=== PATIENT | male | born 1955 | race Caucasian/White ===

== ENCOUNTER 2016-12-11 11:08 | Emergency (ER) | payer MEDICARE ==
[~2016-12-11] VITALS: Ht 177.8 cm; Wt 81.0 kg
[~2016-12-11 11:08] MED LIST: ALBU1AER INH; DULO20 PO; GABA300C3 PO; HYDR12.56 PO; LISI-360 PO; METO100T PO
[2016-12-11 11:11] VITALS: BP 176/91; PULSE 91; RESP 15; TEMP 98.2; O2SAT 98
--- NOTE | 2016-12-11 11:30 | PD ---
Physical Exam Time Seen by Provider: 11:28 Narrative 61yo M c/o abd pain x 1 week and requesting help for ETOH abuse. Reports vomiting and diarrhea. Patient seen in triage. VS reviewed. Patient awaiting bed placement. Data Data Last Documented VS Vital Signs Date Time Temp Pulse Resp B/P Pulse Ox O2 Delivery O2 Flow Rate FiO2 12/11/16 11:11 98.2 91 15 176/91 98 MDM Supervised Visit with JONI: Mary Orellana Dec 11, 2016 11:30
[2016-12-11] MEDS ORDERED: GABA100C4 PO (12:09)
[2016-12-11] MEDS ORDERED: LISI10TA3 PO (12:09)
[2016-12-11] MEDS ORDERED: DULO1CAP3 PO (12:09)
[2016-12-11] MEDS ORDERED: HYDR12.57 PO (12:09)
[2016-12-11] MEDS ORDERED: ALBUAER3 INH (12:09)
[2016-12-11] MEDS ORDERED: METO100T PO (12:09)
--- NOTE | 2016-12-11 12:10 | PD ---
HPI Chief Complaint: GI Complaint Time Seen by Provider: 12:08 Travel History International Travel<30 days: No Contact w/Intl Traveler<30days: No Traveled to known affect area: No History of Present Illness HPI Patient comes in complaining of generalized abdominal pain ongoing for several months and wanting alcohol detox. Patient reports associated diarrhea has been going on for several months. Patient reports dark stools and going on for years. Denies any bright red blood per rectum. Patient reports associated nausea, and vomiting. Reports vomit is nonbilious and nonbloody. Patient states he drinks 12 pack of beer a day and he last drank last night. Denies any chest pain, shortness of breath, back pain, loss or change in bladder, numbness or tingling anywhere, or headaches. PFSH Past Medical History Arthritis: Yes Asthma: No Autoimmune Disease: No Anxiety: Yes Depression: Yes Heart Rhythm Problems: No Cancer: No High Cholesterol: Yes Chest Pain: No Congestive Heart Failure: No COPD: No Cerebrovascular Accident: No Diabetes: No Diminished Hearing: No Endocrine: No Gastrointestinal Disorders: Yes GERD: No Genitourinary: No Headaches: Yes Hiatal Hernia: No Hypertension: Yes Immune Disorder: No Musculoskeletal: Yes Neurologic: Yes Psychiatric: Yes Reproductive: No Respiratory: Yes Immunizations Current: Yes Migraines: Yes (LAST MIGRAINE WAS 06/18/14) Seizures: Yes (STATES "I DON'T THINK I EVER HAD A SZ, JUST THE SHAKES") Sickle Cell Disease: No Sleep Apnea: No Thyroid Disease: No Ulcer: No Past Surgical History Abdominal Surgery: Yes AICD: No Appendectomy: Yes Arteriovenous Shunt: No Cardiac Surgery: No Ear Surgery: No Endocrine Surgery: No Eye Surgery: No Genitourinary Surgery: No Gynecologic Surgery: No Insulin Pump: No Joint Replacement: No Neurologic Surgery: No Oral Surgery: No Pacemaker: No Thoracic Surgery: No Other Surgery: Yes Social History Alcohol Use: Yes (6-12 BEERS QD) Tobacco Use: Yes (1/2 PPD ) Substance Use: Yes (marijuana occasionally ) Allergies-Medications (Allergen,Severity, Reaction): Coded Allergies: No Known Allergies (Verified , 01/11/16) Reported Meds & Prescriptions Reported Meds & Active Scripts Active Reported Hydrochlorothiazide 12.5 Mg Cap Unknown Dose PO DAILY Metoprolol Tartrate 100 Mg Tab 100 Mg PO BID Lisinopril 10 Mg Tab 10 Mg PO DAILY Gabapentin 100 Mg Cap 300 Mg PO TID Duloxetine DR (Duloxetine HCl) 60 Mg Capdr 60 Mg PO BID Review of Systems Except as stated in HPI: all other systems reviewed are Neg Physical Exam Narrative GENERAL: Well-developed, overly nourished, in no acute distress, and non-ill appearing. SKIN: Focused skin assessment warm and dry. HEAD: Atraumatic. Normocephalic. EYES: Pupils equal and round. EOMI. No scleral icterus. No injection or drainage. ENT: No nasal bleeding or discharge. Mucous membranes pink and moist. NECK: Trachea midline. Supple. No nuclear rigidity. CARDIOVASCULAR: Regular rate and rhythm. No murmur appreciated. RESPIRATORY: No accessory muscle use. No respiratory distress. Scant wheezing noted throughout. Breath sounds equal bilaterally. GASTROINTESTINAL: Abdomen soft, non-tender, nondistended. Hepatic margin is palpable and splenic margin not palpable. Normal bowel sounds 4. No pulsatile mass. MUSCULOSKELETAL: No obvious deformities. No clubbing. No cyanosis. No edema. Full range of motion. NEUROLOGICAL: Awake and alert. No obvious cranial nerve deficits. Motor grossly within normal limits. Normal speech. PSYCHIATRIC: Appropriate mood and affect; insight and judgment normal. Data Data Last Documented VS Vital Signs Date Time Temp Pulse Resp B/P Pulse Ox O2 Delivery O2 Flow Rate FiO2 12/11/16 17:44 88 20 143/67 94 12/11/16 11:11 98.2 Orders Complete Blood Count With Diff (12/11/16 12:04) Comprehensive Metabolic Panel (12/11/16 12:04) Lipase (12/11/16 12:04) Prothrombin Time / Inr (Pt) (12/11/16 12:04) Act Partial Throm Time (Ptt) (12/11/16 12:04) Iv Access Insert/Monitor (12/11/16 12:04) Ecg Monitoring (12/11/16 12:04) Oximetry (12/11/16 12:04) Ondansetron Inj (Zofran Inj) (12/11/16 12:15) Sodium Chloride 0.9% Flush (Ns Flush) (12/11/16 12:15) Alcohol (Ethanol) (12/11/16 12:04) Sodium Chlorid 0.9% 500 Ml Inj (Ns 500 M (12/11/16 13:45) Diet Regular Basic (12/11/16 Dinner) Lorazepam Inj (Ativan Inj) (12/11/16 18:00) Labs Laboratory Tests Test 12/11/16 12:20 White Blood Count 6.0 TH/MM3 Red Blood Count 5.45 MIL/MM3 Hemoglobin 16.0 GM/DL Hematocrit 47.0 % Mean Corpuscular Volume 86.4 FL Mean Corpuscular Hemoglobin 29.4 PG Mean Corpuscular Hemoglobin 34.0 % Concent Red Cell Distribution Width 18.9 % Platelet Count 167 TH/MM3 Mean Platelet Volume 7.1 FL Neutrophils (%) (Auto) 63.0 % Lymphocytes (%) (Auto) 25.7 % Monocytes (%) (Auto) 9.9 % Eosinophils (%) (Auto) 0.5 % Basophils (%) (Auto) 0.9 % Neutrophils # (Auto) 3.8 TH/MM3 Lymphocytes # (Auto) 1.6 TH/MM3 Monocytes # (Auto) 0.6 TH/MM3 Eosinophils # (Auto) 0.0 TH/MM3 Basophils # (Auto) 0.1 TH/MM3 CBC Comment DIFF FINAL Differential Comment Prothrombin Time 10.7 SEC Prothromb Time International 1.0 RATIO Ratio Activated Partial 28.4 SEC Thromboplast Time Sodium Level 132 MEQ/L Potassium Level 4.1 MEQ/L Chloride Level 97 MEQ/L Carbon Dioxide Level 22.7 MEQ/L Anion Gap 12 MEQ/L Blood Urea Nitrogen 7 MG/DL Creatinine 0.82 MG/DL Estimat Glomerular Filtration 96 ML/MIN Rate Random Glucose 112 MG/DL Calcium Level 8.5 MG/DL Total Bilirubin 0.8 MG/DL Aspartate Amino Transf 56 U/L (AST/SGOT) Alanine Aminotransferase 57 U/L (ALT/SGPT) Alkaline Phosphatase 91 U/L Total Protein 8.2 GM/DL Albumin 4.2 GM/DL Lipase 292 U/L Ethyl Alcohol Level 395 MG/DL MDM Medical Decision Making Medical Screen Exam Complete: Yes Emergency Medical Condition: Yes Differential Diagnosis Electrolyte abnormality, alcohol intoxication, alcohol abuse, anemia, appendicitis, or other Narrative Course Patient was seen and examined. Laboratory values were obtained and reviewed. Patient was hydrated with normal saline secondary to the mild hyponatremia. Urinalysis canceled as patient has no leukocytosis, is afebrile, and denies any symptoms. Patient will be monitored in the emergency department until clinically sober and able to ambulate on their own or until a sober responsible adult comes to pick them up. RN is aware of this. Patient was reassessed doing better, but complaining of feeling somewhat anxious. Patient given a small dose of Ativan and watched for a while longer in the ER to prevent withdrawal prior to discharge. After receiving Ativan patient was reassessed was ambulatory with steady gait, not slurring words, answering questions appropriately. Patient advised to not drink and drive. Discussed patient with Dr. Ronquillo prior to discharge, who is in agreement with plan and disposition. Patient in no obvious distress upon re-evaluation. All pertinent laboratory result(s) discussed with patient. Any questions/concerns in reference to patient diagnosis/condition discussed and clarified prior to patient's discharge. Reinforced sheer importance of close follow up with patient's primary physician or primary care clinic and/or [facility]. Instructed patient to return to ED immediately, if symptoms return/worsen. Pt showed understanding of above instructions. Further instructions and recommendations were detailed in discharge paperwork. Pt ambulated without difficulty out of ED at discharge. Diagnosis Primary Impression: Alcohol abuse with intoxication Additional Impression: Hyponatremia [facility] Patient Instructions: Abuse of Alcohol (ED), General Instructions, Hyponatremia (ED) Additional Instructions: Follow-up with your primary care physician and/or [facility] for detox. Stop or at least cut back on drinking. Return to the emergency department if symptoms get worse. Disposition: 01 DISCHARGE HOME Condition: Stable Chris Black Dec 11, 2016 12:10
[2016-12-11] MEDS ORDERED: ONDANSETRON HCL 4 MG/2 ML VIAL IVP ONE (12:15)
[2016-12-11] MEDS: SODIUM CHLORIDE 0.9% FLUSH 10 ML FLUSH IV FLUSH PRN ×2 (12:27→18:02)
[2016-12-11 12:31] LABS: AUTOMATED NEUTROPHIL # 3.8 TH/MM3 (1.8-7.7); BASOPHIL # 0.1 TH/MM3 (0-0.2); BASOPHIL % 0.9 % (0.0-2.0); EOSINOPHIL % 0.5 % (0.0-4.0); HEMO FLAGS DIFF FINAL; LYMPH % 25.7 % (9.0-44.0); LYMPHOCYTE # 1.6 TH/MM3 (1.0-4.8); MEAN CELL VOLUME 86.4 FL (80.0-100.0); MEAN CORPUSCULAR HEMOGLOBIN 29.4 PG (27.0-34.0); MONO % 9.9 % (0.0-8.0); PLATELET COUNT 167 TH/MM3 (150-450); RED BLOOD COUNT 5.45 MIL/MM3 (4.50-5.90); RED CELL DISTRIBUTION WIDTH 18.9 % (11.6-17.2)
[2016-12-11 12:43] LABS: APTT (PATIENT) 28.4 SEC (24.3-30.1); PROTHROMBIN TIME - PATIENT 10.7 SEC (9.8-11.6)
[2016-12-11 12:50] LABS: ALT (GPT) 57 U/L (12-78); ANION GAP 12 MEQ/L (5-15); AST (GOT) 56 U/L (15-37); BICARBONATE 22.7 MEQ/L (21.0-32.0); BLOOD UREA NITROGEN 7 MG/DL (7-18); CHLORIDE 97 MEQ/L (98-107); GLOMERULAR FILTRATION RATE 96 ML/MIN (>89); POTASSIUM 4.1 MEQ/L (3.5-5.1); SODIUM (NA) 132 MEQ/L (136-145)
[2016-12-11 12:51] LABS: ALKALINE PHOSPHATASE 91 U/L (45-117); TOTAL BILIRUBIN ADULT 0.8 MG/DL (0.2-1.0)
[2016-12-11] MEDS ORDERED: SODIUM CHLORID 0.9% 500 ML INJ 500 ML IV ONE (13:45)
[2016-12-11 17:44] VITALS: BP 143/67; PULSE 88; RESP 20; O2SAT 94
[2016-12-11] MEDS ORDERED: LORazepam 2 MG/ML VIAL IV PUSH ONE (18:00)
== END 2016-12-11 19:04 | disposition home or self-care (01) ==
LOC: NEPD 11:08
DX: F10.120 Alcohol abuse with intoxication, uncomplicated (principal); E87.1 Hypo-osmolality and hyponatremia; I10 Essential (primary) hypertension; E78.00 Pure hypercholesterolemia, unspecified; F17.210 Nicotine dependence, cigarettes, uncomplicated; Y90.8 Blood alcohol level of 240 mg/100 ml or more
CPT/HCPCS: 80053; 80307; 83690; 85025; 85610; 85730; 96361; 96374; 96375; 99284; J2060; J2405; J7040

== ENCOUNTER 2017-01-23 11:31 | Emergency (ER) | payer MEDICARE ==
[~2017-01-23] VITALS: Ht 177.8 cm; Wt 90.9 kg
[~2017-01-23 11:31] MED LIST changes: -ALBU1AER INH; +DULO1CAP3 PO; -DULO20 PO; +GABA100C4 PO; -GABA300C3 PO; -HYDR12.56 PO; +HYDR12.57 PO; -LISI-360 PO; +LISI10TA3 PO
[2017-01-23 11:32] VITALS: BP 126/60; PULSE 84; RESP 17; TEMP 97.8; O2SAT 94
[2017-01-23] MEDS ORDERED: TRAZ100T6 PO (11:44)
[2017-01-23] MEDS ORDERED: BUSP10TA PO (12:42)
[2017-01-23] MEDS ORDERED: METF500T PO (12:42)
[2017-01-23] MEDS ORDERED: CLON0.1T PO (12:42)
[2017-01-23 13:12] LABS: AUTOMATED NEUTROPHIL # 3.7 TH/MM3 (1.8-7.7); BASOPHIL # 0.1 TH/MM3 (0-0.2); BASOPHIL % 0.9 % (0.0-2.0); EOSINOPHIL # 0.3 TH/MM3 (0-0.4); EOSINOPHIL % 3.8 % (0.0-4.0); HEMATOCRIT 43.8 % (39.0-51.0); HEMO FLAGS DIFF FINAL; LYMPH % 39.5 % (9.0-44.0); LYMPHOCYTE # 3.1 TH/MM3 (1.0-4.8); MEAN CELL VOLUME 87.7 FL (80.0-100.0); MEAN CORPUSCULAR HEMOGLOBIN 29.9 PG (27.0-34.0); MEAN CORPUSCULAR HGB CONC 34.1 % (32.0-36.0); MONO % 8.4 % (0.0-8.0); NEUT % 47.4 % (16.0-70.0); PLATELET COUNT 184 TH/MM3 (150-450); RED BLOOD COUNT 4.99 MIL/MM3 (4.50-5.90); RED CELL DISTRIBUTION WIDTH 17.2 % (11.6-17.2); WHITE BLOOD COUNT 7.8 TH/MM3 (4.0-11.0)
[2017-01-23 13:33] LABS: ANION GAP 9 MEQ/L (5-15); AST (GOT) 20 U/L (15-37); BICARBONATE 21.4 MEQ/L (21.0-32.0); BLOOD UREA NITROGEN 15 MG/DL (7-18); CHLORIDE 105 MEQ/L (98-107); GLOMERULAR FILTRATION RATE 83 ML/MIN (>89); POTASSIUM 4.3 MEQ/L (3.5-5.1); SODIUM (NA) 135 MEQ/L (136-145)
[2017-01-23 13:34] LABS: ALT (GPT) 20 U/L (12-78)
[2017-01-23 13:38] LABS: ALKALINE PHOSPHATASE 77 U/L (45-117); TOTAL BILIRUBIN ADULT 0.5 MG/DL (0.2-1.0)
[2017-01-23 14:26] LABS: AMPHETAMINE, URINE NEG (NEG); BARBITURATES, URINE NEG (NEG); COCAINE, URINE NEG (NEG)
--- NOTE | 2017-01-23 14:37 | PD ---
HPI Chief Complaint: Medical Clearance Time Seen by Provider: 11:46 Travel History International Travel<30 days: No Contact w/Intl Traveler<30days: No Traveled to known affect area: No History of Present Illness HPI Patient is a 61-year-old male, with history of chronic alcohol abuse, who comes in complaining of feeling depressed. He says he does not have any suicidal or homicidal ideations. He says he just feels unwell. He does admit to drinking today. He denies any medical complaints. PFSH Past Medical History Arthritis: Yes Asthma: No Autoimmune Disease: No Anxiety: Yes Depression: Yes Heart Rhythm Problems: No Cancer: No High Cholesterol: Yes Chest Pain: No Congestive Heart Failure: No COPD: No Cerebrovascular Accident: No Diabetes: Yes Diminished Hearing: No Endocrine: No Gastrointestinal Disorders: Yes GERD: No Genitourinary: No Headaches: Yes Hiatal Hernia: No Hypertension: Yes Immune Disorder: No Musculoskeletal: Yes Neurologic: Yes Psychiatric: Yes Reproductive: No Respiratory: Yes Immunizations Current: Yes Migraines: Yes (LAST MIGRAINE WAS 06/18/14) Seizures: Yes (STATES "I DON'T THINK I EVER HAD A SZ, JUST THE SHAKES") Sickle Cell Disease: No Sleep Apnea: No Thyroid Disease: No Ulcer: No Tetanus Vaccination: < 5 Years Influenza Vaccination: No Past Surgical History Abdominal Surgery: Yes AICD: No Appendectomy: Yes Arteriovenous Shunt: No Cardiac Surgery: No Ear Surgery: No Endocrine Surgery: No Eye Surgery: No Genitourinary Surgery: No Gynecologic Surgery: No Insulin Pump: No Joint Replacement: No Neurologic Surgery: No Oral Surgery: No Pacemaker: No Thoracic Surgery: No Other Surgery: Yes Social History Alcohol Use: Yes Tobacco Use: Yes Substance Use: Yes (thc) Allergies-Medications (Allergen,Severity, Reaction): Coded Allergies: No Known Allergies (Verified , 01/23/17) Reported Meds & Prescriptions Reported Meds & Active Scripts Active Reported Clonidine (Clonidine HCl) 0.1 Mg Tab 0.1 Mg PO Q6HR PRN Buspirone (Buspirone HCl) 10 Mg Tab 10 Mg PO BID Metformin (Metformin HCl) 500 Mg Tab 500 Mg PO BIDPC With meals Trazodone (Trazodone HCl) 100 Mg Tablet 100 Mg PO HS Hydrochlorothiazide 12.5 Mg Cap Unknown Dose PO DAILY Metoprolol Tartrate 100 Mg Tab 100 Mg PO BID Lisinopril 10 Mg Tab 10 Mg PO DAILY Gabapentin 100 Mg Cap 300 Mg PO TID Duloxetine DR (Duloxetine HCl) 60 Mg Capdr 60 Mg PO BID Review of Systems Except as stated in HPI: all other systems reviewed are Neg General / Constitutional: No: Fever, Chills Eyes: No: Blurred Vision HENT: No: Headaches, Lightheadedness Cardiovascular: No: Chest Pain or Discomfort Respiratory: No: Shortness of Breath Gastrointestinal: No: Nausea, Vomiting, Abdominal Pain Musculoskeletal: No: Myalgias Skin: No Rash, No Change in Pigmentation Neurologic: No: Weakness, Dizziness Physical Exam Narrative GENERAL: Awake and alert, in no acute distress. Alcohol on breath SKIN: Focused skin assessment warm/dry. HEAD: Atraumatic. Normocephalic. EYES: Pupils equal and round. No scleral icterus. ENT: Mucous membranes pink and moist. NECK: Trachea midline. No JVD. CARDIOVASCULAR: Regular rate and rhythm. No murmur appreciated. RESPIRATORY: No accessory muscle use. Clear to auscultation. Breath sounds equal bilaterally. MUSCULOSKELETAL: No obvious deformities. No clubbing. No cyanosis. No edema. NEUROLOGICAL: Awake and alert. No obvious cranial nerve deficits. Motor grossly within normal limits. Normal speech. PSYCHIATRIC: Appropriate mood and affect; insight and judgment normal. Data Data Last Documented VS Vital Signs Date Time Temp Pulse Resp B/P Pulse Ox O2 Delivery O2 Flow Rate FiO2 01/23/17 11:32 97.8 84 17 126/60 94 Room Air Orders Complete Blood Count With Diff (01/23/17 12:29) Comprehensive Metabolic Panel (01/23/17 12:29) Psych Screen (01/23/17 12:29) Drug Screen, Random Urine (01/23/17 12:29) Alcohol (Ethanol) (01/23/17 12:29) Labs Laboratory Tests Test 01/23/17 01/23/17 12:50 13:50 White Blood Count 7.8 TH/MM3 Red Blood Count 4.99 MIL/MM3 Hemoglobin 14.9 GM/DL Hematocrit 43.8 % Mean Corpuscular Volume 87.7 FL Mean Corpuscular Hemoglobin 29.9 PG Mean Corpuscular Hemoglobin 34.1 % Concent Red Cell Distribution Width 17.2 % Platelet Count 184 TH/MM3 Mean Platelet Volume 7.7 FL Neutrophils (%) (Auto) 47.4 % Lymphocytes (%) (Auto) 39.5 % Monocytes (%) (Auto) 8.4 % Eosinophils (%) (Auto) 3.8 % Basophils (%) (Auto) 0.9 % Neutrophils # (Auto) 3.7 TH/MM3 Lymphocytes # (Auto) 3.1 TH/MM3 Monocytes # (Auto) 0.7 TH/MM3 Eosinophils # (Auto) 0.3 TH/MM3 Basophils # (Auto) 0.1 TH/MM3 CBC Comment DIFF FINAL Differential Comment Sodium Level 135 MEQ/L Potassium Level 4.3 MEQ/L Chloride Level 105 MEQ/L Carbon Dioxide Level 21.4 MEQ/L Anion Gap 9 MEQ/L Blood Urea Nitrogen 15 MG/DL Creatinine 0.93 MG/DL Estimat Glomerular Filtration 83 ML/MIN Rate Random Glucose 131 MG/DL Calcium Level 8.3 MG/DL Total Bilirubin 0.5 MG/DL Aspartate Amino Transf 20 U/L (AST/SGOT) Alanine Aminotransferase 20 U/L (ALT/SGPT) Alkaline Phosphatase 77 U/L Total Protein 7.3 GM/DL Albumin 3.7 GM/DL Ethyl Alcohol Level 294 MG/DL Urine Opiates Screen NEG Urine Barbiturates Screen NEG Urine Amphetamines Screen NEG Urine Benzodiazepines Screen NEG Urine Cocaine Screen NEG Urine Cannabinoids Screen POS MDM Medical Decision Making Medical Screen Exam Complete: Yes Emergency Medical Condition: Yes Medical Record Reviewed: Yes Differential Diagnosis Intoxication versus depression versus psychosis Narrative Course Patient is a 61-year-old male who comes in complaining of depression. Exam shows alcohol on breath, no other abnormalities. Patient has no medical complaints at this time. Alcohol level is 294. He'll be medically cleared for psychiatric evaluation. Disposition per psychiatry. Diagnosis Primary Impression: Alcohol abuse with intoxication Condition: Stable Coty Cr MD Jan 23, 2017 14:37
[2017-01-23 15:16] VITALS: BP 113/56; PULSE 92; RESP 20; O2SAT 92
[2017-01-23] MEDS ORDERED: FLUMAZENIL 0.5 MG/5 ML VIAL IV PUSH PRN (17:45)
[2017-01-23] MEDS ORDERED: LORazepam 2 MG TAB PO PRN (17:45)
[2017-01-23] MEDS ORDERED: LORazepam 2 MG/ML VIAL IV PUSH PRN ×4 (17:45)
[2017-01-23] MEDS ORDERED: LORazepam 1 MG TAB PO PRN (17:45)
[2017-01-23 23:06] VITALS: BP 179/81; PULSE 76; RESP 20; O2SAT 98
[2017-01-24 02:26] VITALS: BP 185/81; PULSE 81; RESP 16; O2SAT 98
[2017-01-24 05:26] VITALS: BP 199/94; PULSE 71; RESP 18; O2SAT 96
[2017-01-24 06:22] VITALS: BP 202/93; PULSE 83; RESP 16; O2SAT 97
[2017-01-24] MEDS ORDERED: LISINOPRIL 10 MG TAB PO ONE (06:30)
[2017-01-24] MEDS ORDERED: cloNIDine HCL 0.1 MG TAB PO ONE (06:30)
[2017-01-24] MEDS ORDERED: METOPROLOL TARTRATE 100 MG TAB PO ONE (06:30)
== END 2017-01-24 09:23 | disposition home or self-care (01) ==
LOC: NEPD 11:31 → NEPJ 01-24 09:23
DX: F10.129 Alcohol abuse with intoxication, unspecified (principal); F32.9 Major depressive disorder, single episode, unspecified; E11.9 Type 2 diabetes mellitus without complications; I10 Essential (primary) hypertension; E78.00 Pure hypercholesterolemia, unspecified; Z72.0 Tobacco use; Z79.84 Long term (current) use of oral hypoglycemic drugs; Z79.899 Other long term (current) drug therapy; Z87.39 Personal history of other diseases of the musculoskeletal system and connective tissue; Z86.59 Personal history of other mental and behavioral disorders; Z87.19 Personal history of other diseases of the digestive system; Z86.69 Personal history of other diseases of the nervous system and sense organs
CPT/HCPCS: 80053; 80307; 85025; 96374; 99284; J2060